=== PATIENT | male | born 1980 | race Caucasian/White ===

== ENCOUNTER → 2017-11-08 | Outpatient (CLI) | payer BC ==
[~2017-11-08] MED LIST: AMLODIPINE BESYL5 MG PO; BUPROPION HCL150 M2 PO; LISINOPRIL PO; NEXIUM40 MG PO; SERTRALINE HCL100 MG PO; SIMVASTATIN40 MG PO; VYVANSE40 MG PO
--- NOTE | 2017-11-08 13:50 | Diagnostic Imaging Report ---
PROCEDURE: SMALL BOWEL SERIES COMPARISON: CT of the abdomen and pelvis dated 07/02/2010. INDICATIONS: ANEMIA, BRIGHT RED STOOLS FINDINGS: The patient was given barium to drink and sequential images of the abdomen were obtained through 4 hours. Spot images of the small bowel and terminal ileum were then obtained. Allergy Specialist film of the abdomen shows multiple calcified renal stones. Small bowel motility and caliber are normal. Prolonged transit time. There is no evidence of mass or mucosal abnormality. The terminal ileum is normal. CONCLUSION: 1. Prolonged small bowel transit time without evidence of a mass. 2. Multiple bilateral calcified renal stones. Topher Abdullahi D.O. Dictated by: Topher Abdullahi D.O. on 11/08/2017 at 13:59 Electronically approved by: Topher Abdullahi D.O. on 11/08/2017 at 13:59
== END ==
LOC: DX 07:45
PROVIDERS: ATTEND Internal Medicine Gastroenterology
DX: D64.9 Anemia, unspecified (principal)
CPT/HCPCS: 74250